=== PATIENT | male | born 1975 | race Caucasian/White ===

== ENCOUNTER 2020-12-29 22:40 | Emergency (ER) | payer BC ==
[2020-12-30 02:56] LABS: RED BLOOD COUNT 4.22 M/UL (4.20-5.50)
[2020-12-30 03:23] LABS: BUN/CREATININE RATIO 11 (0-10)
[2020-12-30] MEDS ORDERED: LODINE CAP 300300 MG PO (03:31)
[2020-12-30] MEDS ORDERED: CLEOCIN HCL150 MG PO (03:31)
== END 2020-12-30 03:48 | disposition home or self-care (01) ==
LOC: ER1 22:40
PROVIDERS: Physician Assistant
DX: K05.219 Aggressive periodontitis, localized, unspecified severity (principal); E10.9 Type 1 diabetes mellitus without complications; Z79.4 Long term (current) use of insulin
CPT/HCPCS: 70487; 80053; 85025; 96374; 96375; 99282; J1885; Q9967

== ENCOUNTER → 2021-10-13 | Outpatient (CLI) | payer OTHER ==
[~2021-10-13] MED LIST: CLEOCIN HCL150 MG PO; LODINE CAP 300300 MG PO
== END ==
LOC: KOH-I 15:34
DX: M19.90 Unspecified osteoarthritis, unspecified site (principal); M47.816 Spondylosis without myelopathy or radiculopathy, lumbar region
CPT/HCPCS: 72100